=== PATIENT | female | born 1965 | race Caucasian/White ===

== ENCOUNTER 2019-05-27 21:14 | Emergency (ER) | payer OTHER ==
[~2019-05-27] VITALS: Ht 149.9 cm; Wt 92.2 kg
[2019-05-27 21:20] VITALS: BP 156/78
--- NOTE | 2019-05-27 21:23 | NUR ---
TO LOBBY A/W BED AMBULATORY
--- NOTE | 2019-05-27 21:36 | NUR ---
PT AMBULATED TO BED 02.
--- NOTE | 2019-05-27 21:36 | NUR ---
53 Y/O FEMALE C/O LEFT FOOT PAIN WITH OPEN WOUND,BLISTER FOR 2 DAYS. PAIN IS A 9/10 ACUTE PAIN PROVOKED WHEN WALKING; TENDER TO TOUCH. A/OX4 FOLLOWS COMMANDS; SKIN IS DRY; OPEN SORE NOTED ON THE LEFT UPPER PLANTAR REGION. NO ACTIVE BLEEDING OR DISCHARGE. PEDAL PULSES +2; NO ANKLE EDEMA. PT. DENIES N/V/D/FEVER/CHILLS. ERMD MADE AWARE OF STATUS. AT BEDSIDE. SIDE RAILSX1. PMH:HYPOTHYROIDISM; HTN RX: LOSARTAN; HYDROCHLOROTHIAZIDE; LEVOTHYROXINE NKDA
[2019-05-27] MEDS ORDERED: BACITRACIN OINT 500 UNITS/GM PKT TP ONE (22:20)
--- NOTE | 2019-05-27 22:29 | NUR ---
PT WOUND IRRIGATED WITH NORMAL SALINE AND BETADINE
--- NOTE | 2019-05-27 22:30 | NUR ---
PT WOUND ON L FOOT COVERED WITH NON ADHERENT DRESSING AND WRAPPED WITH ROLLER GAUZE
[2019-05-27 23:07] VITALS: BP 140/73
--- NOTE | 2019-05-27 23:07 | NUR ---
Patient discharged with v/s stable. Written and verbal after care instructions given and explained. Patient alert, oriented and verbalized understanding of instructions. Ambulatory with steady gait. All questions addressed prior to discharge. ID band removed. Patient advised to follow up with PMD. Rx of ACETAMINOPHEN; BACITRACIN given. Patient educated on indication of medication including possible reaction and side effects. Opportunity to ask questions provided and answered.
== END 2019-05-27 23:07 | disposition home or self-care (01) ==
LOC: MED 21:14
DX: S90.822A Blister (nonthermal), left foot, initial encounter (principal); I10 Essential (primary) hypertension; X58.XXXA Exposure to other specified factors, initial encounter; Y93.89 Activity, other specified; Y92.89 Other specified places as the place of occurrence of the external cause; Y99.8 Other external cause status
CPT/HCPCS: 73630; 99283; Q0092

== ENCOUNTER 2019-06-01 12:24 | Emergency (ER) | payer OTHER ==
[~2019-06-01] VITALS: Ht 162.6 cm; Wt 72.6 kg
[2019-06-01 12:34] VITALS: BP 162/84
--- NOTE | 2019-06-01 13:19 | NUR ---
PT AMBULATED TO BED 9.
--- NOTE | 2019-06-01 13:35 | NUR ---
53 Y/O F PRESENTS TO ER C/O OF DIZZINESS AND SLIGHT HEADACHE TODAY. PER PT SHE FORGOT TO TAKE HER HTN MEDICATION YESTERDAY BECAUSE SHE LEFT HER RX AT HER DAUGHTERS HOUSE. PER PT SHE FEELS "OKAY" NOW. DENIES ANY PAIN. VSS. HOB ELEVATED, BED IN LOWEST POSITION, BEDRAIL UP X1. ERMD AT BEDSIDE. ALLERGIES: NKA MED HX: HTN
[2019-06-01 15:14] VITALS: BP 139/75
--- NOTE | 2019-06-01 15:15 | NUR ---
Patient discharged with v/s stable. Written and verbal after care instructions given and explained. Patient verbalized understanding. Ambulatory with steady gait. All questions addressed prior to discharge. Advised to follow up with PMD.
== END 2019-06-01 15:15 | disposition home or self-care (01) ==
LOC: MED 12:24
DX: I10 Essential (primary) hypertension (principal); R51 Headache; R42 Dizziness and giddiness
CPT/HCPCS: 93005; 99283